=== PATIENT | male | born 1980 | race Caucasian/White ===

== ENCOUNTER 2018-10-19 17:32 | Emergency (ER) | payer BC ==
[2018-10-19 17:51] VITALS: RESP 18; TEMP 98.4
--- NOTE | 2018-10-19 18:45 | ED ---
General Adult HPI - General Chief complaint: Recheck/Abnormal Lab/Rx Stated complaint: High BP Time Seen by Provider: 10/19/18 17:55 Source: patient Mode of arrival: ambulatory Limitations: no limitations - History of Present Illness Initial comments: Dictation was produced using [employer] dictation software. please excuse any grammatical, word or spelling errors. Chief Complaint: Patient is a 38-year-old malepast medical history presents with abnormal outpatient vital signs. History of Present Illness: Patient is a 2-year-old male he was sent over by primary care physician for elevated blood pressure. Patient was found have elevated blood pressures over the last couple days. Patient was seen by his primary care physician and told to come to the emergency department. Patient denies any headache, chest pain, shortness of breath, numbness tingling or paresthesias. He states otherwise he feels benign. He drinks 2-3 cups of coffee or tea a day. Denies any energy drinks. Patient denies any alcohol or tobacco use. Patient was seen by nurse practitioner and Dr. Chavez's office his primary care physician and told to the emergency department. he has no complaint. The ROS documented in this emergency department record has been reviewed and confirmed by me. Those systems with pertinent positive or negative responses have been documented in the HPI. All other systems are other negative and/or noncontributory. PHYSICAL EXAM: General Impression: Alert and oriented x3, not in acute distress HEENT: Normocephalic atraumatic, extra-ocular movements intact, pupils equal and reactive to light bilaterally, mucous membranes moist. Cardiovascular: Heart regular rate and rhythm, S1&S2 audible, no murmurs, rubs or gallops Chest: Lungs clear to auscultation bilaterally, no rhonchi, no wheeze, no rales Abdomen: Bowel sounds present, abdomen soft, non-tender, non-distended, no organomegaly Musculoskeletal: Pulses present and equal in all extremities, no peripheral edema Motor: no focal deficits noted Neurological: CN II-XII grossly intact, no focal motor or sensory deficits noted Skin: Intact with no visualized rashes Psych: Normal affect and mood ED course: 38-year-old male presents with asymptomatic hypertension. Physical examination is benign. As upon arrival shows blood pressure 150 10/19/2013, so vital signs within acceptable limits. Patient was told by nurse practitioner Dr. Chavez's office that he is a candidate for IV blood pressure medications. I agree given that she is asymptomatic. Risk and benefits were discussed with patient in regards to administration of IV blood pressure meds in her to move patient's blood pressure measurement. Patient agreed that at this point IV blood pressure medication push is not a sister at this time. He does however would like to be started on by mouth blood pressure medications. Laboratory evaluation obtained. CBC, remote panel is unremarkable. There is no signs of kidney injury. Patient has no coma morbidities. Patient given 1 dose of oral hydrochlorothiazide. Patient started on by mouth daily hydrochlorothiazide. Aggressive up with his PCP for outpatient management of blood pressure. Patient be discharged. Return parameters discussed. Patient understandable agreeable to disposition. EKG interpretation: Ventricular rate 76, normal sinus rhythm,. Interval 164, care is 106, QTC 447. No ME prolongation, no QTC prolongation, no ST or T-wave changes noted. Overall, this EKG is unremarkable - Related Data Home Medications Medication Instructions Recorded Confirmed Ibuprofen [Motrin] 800 mg PO TID 10/19/18 10/19/18 Previous Rx's Medication Instructions Recorded Hydrochlorothiazide 12.5 mg PO DAILY #16 capsule 10/19/18 Allergies Allergy/AdvReac Type Severity Reaction Status Date / Time No Known Allergies Allergy Verified 10/19/18 18:26 Review of Systems ROS Statement: Those systems with pertinent positive or pertinent negative responses have been documented in the HPI. ROS Other: All systems not noted in ROS Statement are negative. Past Medical History Past Medical History: No Reported History History of Any Multi-Drug Resistant Organisms: None Reported Past Surgical History: Orthopedic Surgery Past Psychological History: No Psychological Hx Reported Smoking Status: Never smoker Past Alcohol Use History: Rare Past Drug Use History: None Reported General Exam Limitations: no limitations Course Vital Signs 10/19/18 17:49 Temperature 98.4 F Pulse Rate 85 Respiratory 18 Rate Blood Pressure 157/114 O2 Sat by Pulse 95 Oximetry Medical Decision Making - Lab Data Result diagrams: 10/19/18 18:12 10/19/18 18:12 Lab Results 10/19/18 10/19/18 Range/Units 18:12 18:12 WBC 5.7 (3.8-10.6) k/uL RBC 5.41 (4.30-5.90) m/uL Hgb 15.1 (13.0-17.5) gm/dL Hct 45.5 (39.0-53.0) % MCV 84.1 (80.0-100.0) fL MCH 27.9 (25.0-35.0) pg MCHC 33.1 (31.0-37.0) g/dL RDW 16.2 H (11.5-15.5) % Plt Count 193 (150-450) k/uL Neutrophils % 43 % Lymphocytes % 46 % Monocytes % 5 % Eosinophils % 5 % Basophils % 1 % Neutrophils # 2.4 (1.3-7.7) k/uL Lymphocytes # 2.6 (1.0-4.8) k/uL Monocytes # 0.3 (0-1.0) k/uL Eosinophils # 0.3 (0-0.7) k/uL Basophils # 0.0 (0-0.2) k/uL Anisocytosis Slight Sodium 139 (137-145) mmol/L Potassium 4.4 (3.5-5.1) mmol/L Chloride 106 (98-107) mmol/L Carbon Dioxide 23 (22-30) mmol/L Anion Gap 10 mmol/L BUN 14 (9-20) mg/dL Creatinine 0.94 (0.66-1.25) mg/dL Est GFR (CKD-EPI)AfAm >90 (>60 ml/min/1.73 sqM) Est GFR (CKD-EPI)NonAf >90 (>60 ml/min/1.73 sqM) Glucose 84 (74-99) mg/dL Calcium 9.4 (8.4-10.2) mg/dL Disposition Clinical Impression: Hypertension Disposition: HOME SELF-CARE Condition: Good Prescriptions: Hydrochlorothiazide 12.5 mg PO DAILY #16 capsule Is patient prescribed a controlled substance at d/c from ED?: No Referrals: Moni Chavez MD [Primary Care Provider] - 1-2 days Time of Disposition: 19:10
[2018-10-19 18:50] LABS: African American GFR (CKD) >90 (>60 ml/min/1.73 sqM); Anion Gap 10 mmol/L; Blood Urea Nitrogen 14 mg/dL (9-20); Calcium 9.4 mg/dL (8.4-10.2); Carbon Dioxide 23 mmol/L (22-30); Chloride 106 mmol/L (98-107); Glucose 84 mg/dL (74-99); Potassium 4.4 mmol/L (3.5-5.1); Sodium 139 mmol/L (137-145)
[2018-10-19 18:59] LABS: Anisocytosis Slight; Basophils % (A) 1 %; Eosinophils # (A) 0.3 k/uL (0-0.7); Eosinophils % (A) 5 %; HCT 45.5 % (39.0-53.0); HGB 15.1 gm/dL (13.0-17.5); Lymphocytes # (A) 2.6 k/uL (1.0-4.8); Lymphocytes % (A) 46 %; MCH 27.9 pg (25.0-35.0); MCHC 33.1 g/dL (31.0-37.0); MCV 84.1 fL (80.0-100.0); Mean Platelet Volume 7.7; Monocytes # (A) 0.3 k/uL (0-1.0); Monocytes % (A) 5 %; Neutrophils # (A) 2.4 k/uL (1.3-7.7); Neutrophils % (A) 43 %; Platelet Count 193 k/uL (150-450); RBC 5.41 m/uL (4.30-5.90); RDW 16.2 % (11.5-15.5); WBC 5.7 k/uL (3.8-10.6)
[2018-10-19] MEDS ORDERED: HYDROCHLOROTHIAZIDE 25 MG TAB PO STA (19:06)
[2018-10-19 19:48] VITALS: BP 146/109; PULSE 72
== END 2018-10-19 19:48 | disposition home or self-care (01) ==
LOC: EC 17:32
DX: I10 Essential (primary) hypertension (principal)
CPT/HCPCS: 36415; 80048; 85025; 93005; 99283